=== PATIENT | male | born 1985 | race Caucasian/White ===

== ENCOUNTER 2017-04-13 23:17 | Emergency (ER) | payer OTHER ==
[2017-04-14] MEDS ORDERED: CLINDAMYCIN 150 MG CAPSULE PO STA (01:28)
--- NOTE | 2017-04-14 01:34 | ED Physician Documentation ---
PD HPI HEENT - Stated complaint Stated Complaint: SWOLLEN FACE/THROAT PX - Chief complaint Chief Complaint: General - History obtained from History obtained from: Patient, Family - History of Present Illness Timing - onset: Yesterday Timing - details: Gradual onset, Still present Associated symptoms: Facial swelling. No: Fever, Congestion, Rhinorrhea Similar symptoms before: Has not had sx before Recently seen: Not recently seen - Additional information Additional information: Patient is a 31 year old male with no significant past medical history who is presenting to the emergency department for facial swelling. patient stated that it started yesterday and has become progressively worse. patient denies any trauma or dental caries. Review of Systems Constitutional: denies: Fever, Chills Eyes: denies: Loss of vision, Decreased vision Ears: denies: Ear pain, Drainage/discharge Nose: denies: Rhinorrhea / runny nose, Congestion Throat: denies: Dental pain / toothache, Sore throat Respiratory: denies: Dyspnea, Cough GI: denies: Nausea, Vomiting : reports: Reviewed and negative Skin: reports: Rash, Lesions Musculoskeletal: denies: Neck pain Neurologic: denies: Generalized weakness, Focal weakness, Confused, Altered mental status, Headache Immunocompromised: denies: Immunocompromised PD PAST MEDICAL HISTORY - Past Medical History Musculoskeletal: Chronic back pain - Past Surgical History Past Surgical History: No - Present Medications Home Medications: Ambulatory Orders Medication Instructions Recorded Confirmed Clindamycin HCl 300 mg PO Q6H 7 Days 04/14/17 - Allergies Allergies/Adverse Reactions: Allergies Allergy/AdvReac Type Severity Reaction Status Date / Time No Known Drug Allergies Allergy Verified 11/26/14 18:49 - Social History Does the pt smoke?: Yes Smoking Status: Current every day smoker Does the pt drink ETOH?: Yes Does the pt have substance abuse?: No - Immunizations Immunizations are current?: Yes PD ED PE NORMAL - Vitals Vital signs reviewed: Yes - General General: Alert and oriented X 3 - HEENT HEENT: Atraumatic, PERRL, Moist mucous membranes, Pharynx benign - Neck Neck: Supple, no meningeal sign - Cardiac Cardiac: RRR, No murmur - Respiratory Respiratory: No respiratory distress - Abdomen Abdomen: Non distended - Extremities Extremities: No deformity, No edema - Neuro Neuro: Alert and oriented X 3, No motor deficit, Normal speech - Psych Psych: Normal mood, Normal affect PD ED PE EXPANDED - HEENT HEENT: Dentition normal, Other (swelling of right lower face with superficial discharge. no oral lesion or abscess). 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 No: Stiff neck, Limited ROM Results - Vitals Vitals: Vital Signs - 24 hr 04/13/17 04/14/17 23:23 01:50 Temperature 36.4 C L Heart Rate 71 68 Respiratory 18 16 Rate Blood Pressure 136/82 H 136/74 H O2 Saturation 100 97 Oxygen O2 Source Room air PD MEDICAL DECISION MAKING - ED course Complexity details: reviewed old records, reviewed results, re-evaluated patient , considered differential, d/w patient ED course: Patient was seen and examined at bedside. patient's abscess was viewed with the ultrasound to see if there was something drainable. There was no drainable abscess or fluids collection, and no intra oral abscess. patient was started on clindamycin and given detailed discharge and follow up instructions. patient required no further work up and was stable for discharge with outpatient follow up. Departure - Departure Disposition: 01 Home, Self Care Clinical Impression: Facial cellulitis Condition: Good Instructions: ED Cellulitis Facial Follow-Up: Sean Goldstein MD [Primary Care Provider] - Within 3 Days Prescriptions: Clindamycin HCl 300 mg PO Q6H 7 Days Comments: Your symptoms today are being caused by an infection in your face. You had your first dose of antibiotics tonight. You will need to take it every 6 hours for the next week. You should take it with yogurt or probiotics to diminish the GI side effects. You should apply warm compresses to the wound as well. you should follow up with your doctor this week for a wound check. You may return to the emergency department at any time for new, worsening or uncontrollable symptoms. Discharge Date/Time: 04/14/17 01:50
[2017-04-14] MEDS ORDERED: ACETAMINOPHEN 500 MG TABLET PO STA (01:38)
[2017-04-14] MEDS ORDERED: CLINDAMYCIN 150 MG CAPSULE PO ONE (01:40)
[2017-04-14 01:56] VITALS: BP 136/74
== END 2017-04-14 01:50 | disposition home or self-care (01) ==
LOC: ED 23:17
DX: F17.200 Nicotine dependence, unspecified, uncomplicated (principal)
CPT/HCPCS: 99283; A9270

== ENCOUNTER 2017-07-09 13:08 | Outpatient (CLI) | payer OTHER ==
--- NOTE | 2017-07-09 16:41 | MRI Report ---
EXAM: RIGHT WRIST MRI WITHOUT CONTRAST EXAM DATE: 07/09/2017 02:17 PM. CLINICAL HISTORY: PAIN IN RT WRIST. COMPARISON: None. TECHNIQUE: Multiplanar, multisequence T1-weighted and fluid-sensitive sequences of the wrist without contrast. Other: None. FINDINGS: Bones: No fractures or subluxations. No marrow edema. No bone lesions. Cartilage: The articular cartilage is unremarkable. The triangular fibrocartilage complex is unremark able. Ligaments: The scapholunate and lunotriquetral ligaments are intact. The visualized other intrinsic, extrinsic and collateral ligaments are unremarkable. There is mild edema around the dorsal ligament. Tendons: Mildly increased signal is seen in the musculotendinous junction of the extensor pollicis br sarah as it crosses over the extensor carpi radialis brevis. The extensor compartment I through and flexor tendons are otherwise unremarkable. Musculature: No edema or fatty atrophy. Other: The contents of the carpal tunnel, including the median nerve, are unremarkable. Guyons canal is unremarkable. No ganglion cysts. No joint effusions. The subcutaneous tissues are unremarkable. IMPRESSION: 1. Mild edema around the dorsal ligament. It is nonspecific. However if there is localized pain, it c an be due to mild sprain, without tear. 2. Mildly increased signal in the musculotendinous junction of the extensor pollicis brevis as it crowd controller sses over the extensor carpi radialis brevis. If there are associated symptoms, it can be due to mild intersection syndrome. [facility] MUSCULOSKELETAL RADIOLOGY SECTION Referring Provider Line: [phone] SITE ID: [id number]
== END 2017-07-09 13:09 | disposition home or self-care (01) ==
LOC: DI 13:08
PROVIDERS: ATTEND General Practice
DX: M25.531 Pain in right wrist (principal); R60.0 Localized edema